=== PATIENT | male | born 1950 | race Caucasian/White ===

== ENCOUNTER 2018-12-30 17:56 | Emergency (ER) | payer MEDICARE ==
[2018-12-30] MEDS ORDERED: ASPIRIN PO ONE (18:37)
[2018-12-30 18:38] VITALS: BP 144/69
--- NOTE | 2018-12-30 18:40 | Emergency Department Report ---
Chief Complaint: Chest Pain Stated Complaint: PURVI/CHEST PAIN Time Seen by Provider: 12/30/18 18:36 - HPI History of Present Illness: This is a 68 y.o. M. that presents to the ER with SOB and chest pain for 2 days. PMH: HTN Patient stopped taking blood pressure medication 4 days ago. Denies recent travel - Exam Vital Signs: Vital Signs 12/30/18 18:35 Temperature 98.7 F Pulse Rate 75 Respiratory 16 Rate Blood Pressure 144/69 [Right] O2 Sat by Pulse 100 Oximetry MSE screening note: Focused history and physical exam performed. Due to findings the following was ordered: Labs, EKG, & CXR ED Disposition for MSE Condition: Stable
[2018-12-30 18:58] LABS: Basophils # (Auto) 0.1 K/mm3 (0.0-0.1); Basophils % (Auto) 1.1 % (0.0-1.8); Eosinophils # (Auto) 0.2 K/mm3 (0.0-0.4); Eosinophils % (Auto) 2.7 % (0.0-4.3); Hemoglobin 14.5 gm/dl (11.8-15.2); Lymphocytes # (Auto) 2.5 K/mm3 (1.2-5.4); Lymphocytes % (Auto) 34.3 % (13.4-35.0); Mean Corpuscular HGB Conc 35 % (32-34); Mean Corpuscular Volume 89 fl (84-94); Monocytes # (Auto) 0.4 K/mm3 (0.0-0.8); Monocytes % (Auto) 6.1 % (0.0-7.3); Platelet Count 217 K/mm3 (140-440); Red Blood Count 4.72 M/mm3 (3.65-5.03); Red Cell Distribution Width 14.4 % (13.2-15.2)
--- NOTE | 2018-12-30 19:11 | XRay Report ---
PROCEDURE: XR CHEST 1V AP TECHNIQUE: Chest radiograph single view. HISTORY: Chest Pain COMPARISONS: None . FINDINGS: Heart: Normal. Mediastinum/Vessels: Normal. Lungs/Pleural space: No infiltrate, effusion, or pneumothorax. Bony thorax: No acute osseous abnormality. Life support devices: None. IMPRESSION: No radiographic evidence of acute cardiopulmonary abnormality. This document is electronically signed by Sol Cormier MD., Dec 30 2018 07:07:40 PM ET
[2018-12-30 19:16] LABS: BUN/Creatinine Ratio 10; Blood Urea Nitrogen 11 mg/dL (9-20); Calcium 9.1 mg/dL (8.4-10.2); Hemolysis Index 5
[2018-12-30] MEDS ORDERED: PEPCID PO ONE (19:58)
[2018-12-30] MEDS ORDERED: TYLENOL PO ONE (19:58)
--- NOTE | 2018-12-30 20:05 | Emergency Department Report ---
ED Chest Pain HPI - General Chief Complaint: Chest Pain Stated Complaint: PURVI/CHEST PAIN Time Seen by Provider: 12/30/18 18:36 Source: patient Mode of arrival: Ambulatory Limitations: No Limitations - History of Present Illness Initial Comments: Mr. Dye is a 68 yo male with hx of HTN who presents with 4 days of left chest pain. Pain feels like a pinching sensation when he takes a deep breath. Reproducible with breathing. Mild pain. NO radiation. Located near nipple region. Gradual onset of symptoms. Patient did fast for 20 days 15 hours per day. He has resumed normal eating for the past 2 days. He has lost 30 pounds. His son is concerned that the weight loss may have been too drastic. His son is also concerned that patient has not taken his blood pressure medication for the past several days PCP Dr. Laury POWELL Complaint: chest pain -: days(s) (4) Onset: during rest Pain Radiation: none Severity: mild Severity scale (0 -10): 6 Consistency: intermittent Improves With: other (easy breathing) Worsens With: inspiration - Related Data Allergies Allergy/AdvReac Type Severity Reaction Status Date / Time No Known Allergies Allergy Verified 12/30/18 18:37 Heart Score - HEART Score History: Slightly suspicious EKG: Non-specific Age: > 65 Risk factors: 1-2 risk factors Troponin: < normal limit HEART Score: 4 ED Review of Systems ROS: Stated complaint: PURVI/CHEST PAIN Other details as noted in HPI Comment: All other systems reviewed and negative Constitutional: denies: fever, malaise Cardiovascular: chest pain Gastrointestinal: denies: abdominal pain ED Past Medical Hx - Past Medical History Previous Medical History?: Yes Hx Hypertension: Yes Additional medical history: Dyslipidemia - Surgical History Past Surgical History?: No - Family History Family history: no significant, other (both parents lived healthily to long age) - Social History Smoking Status: Never Smoker Substance Use Type: None ED Physical Exam - General Limitations: No Limitations General appearance: alert, in no apparent distress, other (takes a deep breath to reproduce the pain) - Head Head exam: Present: atraumatic, normocephalic - Eye Eye exam: Present: normal appearance - ENT ENT exam: Present: mucous membranes moist - Neck Neck exam: Present: normal inspection, full ROM - Respiratory Respiratory exam: Present: normal lung sounds bilaterally. Absent: respiratory distress, wheezes, rales, rhonchi - Cardiovascular Cardiovascular Exam: Present: regular rate, normal rhythm, normal heart sounds. Absent: systolic murmur, diastolic murmur, rubs, gallop - GI/Abdominal GI/Abdominal exam: Present: soft, normal bowel sounds. Absent: distended, tenderness, guarding, rebound - Rectal Rectal exam: Present: deferred - Extremities Exam Extremities exam: Present: normal inspection - Back Exam Back exam: Present: normal inspection - Neurological Exam Neurological exam: Present: alert, oriented X3 - Psychiatric Psychiatric exam: Present: normal affect, normal mood - Skin Skin exam: Present: warm, dry, intact, normal color. Absent: rash ED Course Vital Signs 12/30/18 18:35 Temperature 98.7 F Pulse Rate 75 Respiratory 16 Rate Blood Pressure 144/69 [Right] O2 Sat by Pulse 100 Oximetry ED Medical Decision Making - Lab Data Result diagrams: 12/30/18 18:41 12/30/18 18:41 Laboratory Results - last 24 hr 12/30/18 12/30/18 18:41 18:41 WBC 7.2 RBC 4.72 Hgb 14.5 Hct 42.0 MCV 89 MCH 31 MCHC 35 H RDW 14.4 Plt Count 217 Lymph % (Auto) 34.3 [place] % (Auto) 6.1 Eos % (Auto) 2.7 Baso % (Auto) 1.1 Lymph # 2.5 [place] # 0.4 Eos # 0.2 Baso # 0.1 Seg Neutrophils % 55.8 Seg Neutrophils # 4.0 Sodium 140 Potassium 3.3 L Chloride 102.2 Carbon Dioxide 24 Anion Gap 17 BUN 11 Creatinine 1.1 Estimated GFR > 60 BUN/Creatinine Ratio 10 Glucose 128 H Calcium 9.1 Troponin T < 0.010 - EKG Data 12/30/18 20:04 EKG obtained 1801 Normal sinus rhythm rate 70 beats a minute left axis deviation right bundle- branch block no ST elevation no signs of ischemia normal T-wave pattern normal QT interval first-degree AV block - Medical Decision Making Mr. Dye presents with pleuritic chest pain atypical for ACS. The pain appears to be reproducible with deep inspiration. No pain at rest. CTA of the chest without evidence of pulmonary embolism. Pertinent positive small noncalcified pulmonary nodule. Seen in the posterior costophrenic angle. Will need another examination for 4 months. Troponins 2 negative. EKG unremarkable. Differential diagnosis includes pneumonia, pleurisy, chest wall pain. No indication of acute emergent dialysis at this time. I also discussed high potassium diet. I do recommend follow-up with Dr. Schaeffer to arrange outpatient cardiac stress test. He will walk into PCPs office this Sunday. Critical care attestation.: If time is entered above; I have spent that time in minutes in the direct care of this critically ill patient, excluding procedure time. ED Disposition Clinical Impression: Chest pain, Lung nodule, Hypokalemia Disposition: TO HOME OR SELFCARE Is pt being admited?: No Does the pt Need Aspirin: No Condition: Stable Instructions: Chest Pain (ED), Pulmonary Nodules (ED), Hypokalemia (ED) Referrals: SALLY SCHAEFFER JR, MD [Staff Physician] - 2-3 Days
--- NOTE | 2018-12-30 21:41 | Cat Scan Report ---
PROCEDURE: CT ANGIO CHEST TECHNIQUE: Computerized tomographic angiography of the chest was performed during the IV injection o f iodinated nonionic contrast including image processing. The image data was postprocessed using 2-d imensional multiplanar reformatted (MPR) and 3-dimensional (MIP and/or volume rendered) techniques. A utomated exposure control, adjustment of mA and/or kV according to patient size, or iterative reconst ruction dose optimization techniques were utilized. CT DOSE LENGTH PRODUCT: 673.1 mGycm HISTORY: pleuritic left chest pain COMPARISONS: None . FINDINGS: Pulmonary out flow tract, right and left main pulmonary arteries and the approximal branches: Clear, no filling defects seen to suggest pulmonary embolus. Pericardium: No evidence of pericardial effusion. Thoracic aorta: Atherosclerotic changes are visualized, no evidence of aneurysmal dilatation or diss ection. Coronary arteries: Unremarkable. Mediastinum and hilar regions: Non specific subcentimeter lymph nodes are visualized. No pathologica lly enlarged lymph nodes or masses are identified. Lung [place]: There is a 5.7 mm noncalcified peripheral nodule in the left posterior costophrenic angl e. A second nodule measuring 4 mm also visualized. These are seen on images 77 and image 84 respectiv yolanda. Small amount of dependent atelectasis visualized. No infiltrates are seen. No effusions are seen . Upper abdomen: No acute abnormalities are identified. Low-density nodule seen superiorly in the righ t lobe of the liver anteriorly measuring 4.0 cm appears to represent a hepatic cyst. Other: No acute bone abnormalities are visualized. IMPRESSION: No evidence of pulmonary embolus. Atherosclerotic changes seen in the thoracic aorta. There is no aneurysm or dissection. Small noncalcified pulmonary nodule seen in left posterior costophrenic angle. These are a finding of uncertain significance. Short-term follow-up exam, 3-4 months recommended. Hepatic cyst suspected as described. This document is electronically signed by Dipak Meadows MD., Dec 30 2018 09:39:40 PM ET
== END 2018-12-30 22:32 | disposition home or self-care (01) ==
LOC: ED 17:56
DX: R07.1 Chest pain on breathing (principal); E87.6 Hypokalemia; R91.1 Solitary pulmonary nodule; I10 Essential (primary) hypertension; E78.5 Hyperlipidemia, unspecified
CPT/HCPCS: 36415; 71045; 71275; 80048; 84484; 85025; 93005; 93010; 99285; Q9967